=== PATIENT | male | born 1970 | race Caucasian/White ===

== ENCOUNTER 2019-06-13 02:33 | Emergency (ER) | payer OTHER ==
[~2019-06-13] VITALS: Ht 193 cm; Wt 117.9 kg
[~2019-06-13 02:33] MED LIST: LANTUS SUBQ; LIORESAL 10 MG10 MG PO; METFORMIN HCL500 MG PO; PERCOCET PO; TYLENOL325 MG PO; VICTOZA0.6 MG/0.1 SUBQ
[2019-06-13] MEDS ORDERED: TOUJEO MAX300 UNIT/1 (02:35)
[2019-06-13] MEDS ORDERED: JARDIANCE (02:36)
[2019-06-13 02:56] LABS: HEMATOCRIT 47.6 % (42.0-52.0); HEMOGLOBIN 16.7 gm/dL (14.0-18.0); MCH 27.6 pg (26.0-34.0); MCHC 35.1 g/dL (28.0-37.0); MCV 78.6 fL (80.0-100.0); MPV 7.8 fl. (7.2-11.1); NUCLEATED RBCS 0 /100WBC; PLATELET COUNT* 311 thou/uL (150-400); RBC 6.06 mil/uL (4.50-6.00); RDW-CV 13.9 % (10.5-14.5); WBC 14.3 thou/uL (4.0-11.0)
[2019-06-13 03:08] LABS: CALCIUM 9.2 mg/dL (8.5-10.1); CREATININE 0.9 mg/dL (0.6-1.3)
[2019-06-13 03:10] LABS: POTASSIUM 2.8 mmol/L (3.5-5.1)
[2019-06-13 03:46] LABS: ABSOLUTE BASOPHILS 0.6 thou/uL (0.0-0.2); ABSOLUTE EOSINOPHILS 0.7 thou/uL (0.0-0.7); ABSOLUTE LYMPHOCYTES 7.4 thou/uL (0.8-5.3); ABSOLUTE MONOCYTES 0.7 thou/uL (0.0-1.2); ABSOLUTE NEUTROPHILS 4.9 thou/uL (1.6-8.1); ATYPICAL LYMPHS 2 %; PLATELET ESTIMATE ADEQUATE
[2019-06-13 03:47] LABS: ANISOCYTOSIS Occasional
[2019-06-13 04:12] LABS: ALBUMIN 4.1 g/dL (3.4-5.0); TOTAL BILIRUBIN 0.2 mg/dL (<0.1-1.0); TOTAL PROTEIN 7.4 g/dL (6.4-8.2)
[2019-06-13 06:30] VITALS: BP 139/82
== END 2019-06-13 06:30 | disposition home or self-care (01) ==
LOC: M.ERS 02:33
PROVIDERS: Emergency Medicine
DX: T38.3X1A Poisoning by insulin and oral hypoglycemic [antidiabetic] drugs, accidental (unintentional), initial encounter (principal); E11.649 Type 2 diabetes mellitus with hypoglycemia without coma; F90.9 Attention-deficit hyperactivity disorder, unspecified type; Z88.6 Allergy status to analgesic agent; Y92.89 Other specified places as the place of occurrence of the external cause

== ENCOUNTER 2019-11-08 10:55 | Emergency (ER) | payer OTHER ==
[~2019-11-08] VITALS: Ht 193 cm; Wt 122.5 kg
[~2019-11-08 10:55] MED LIST changes: +JARDIANCE; +TOUJEO MAX300 UNIT/1
[2019-11-08 11:51] LABS: ABSOLUTE LYMPHOCYTES 0.6 thou/uL (0.8-5.3); ABSOLUTE MONOCYTES 0.9 thou/uL (0.0-1.2); ABSOLUTE NEUTROPHILS 6.6 thou/uL (1.6-8.1); BASOPHILS 0.5 %; EOSINOPHILS 0.3 %; HEMATOCRIT 50.8 % (42.0-52.0); HEMOGLOBIN 17.6 gm/dL (14.0-18.0); LYMPHOCYTES 7.6 %; MCH 27.9 pg (26.0-34.0); MCHC 34.6 g/dL (28.0-37.0); MCV 80.7 fL (80.0-100.0); MONOCYTES 10.5 %; MPV 7.7 fl. (7.2-11.1); NUCLEATED RBCS 0 /100WBC; PLATELET COUNT* 177 thou/uL (150-400); POLYS 81.1 %; RBC 6.29 mil/uL (4.50-6.00); RDW-CV 14.3 % (10.5-14.5); WBC 8.2 thou/uL (4.0-11.0)
[2019-11-08 12:01] LABS: CALCIUM 8.2 mg/dL (8.5-10.1); CREATININE 1.1 mg/dL (0.6-1.3); POTASSIUM 4.2 mmol/L (3.5-5.1)
[2019-11-08 12:12] LABS: ALBUMIN 3.5 g/dL (3.4-5.0); TOTAL BILIRUBIN 1.5 mg/dL (<0.1-1.0); TOTAL PROTEIN 7.6 g/dL (6.4-8.2)
[2019-11-08 12:57] LABS: URINE BLOOD NEGATIVE (Negative); URINE CLARITY CLEAR; URINE COLOR YELLOW; URINE GLUCOSE-RANDOM 2+ (Negative); URINE LEUKOCYTES-REFLEX NEGATIVE (Negative); URINE NITRITE-REFLEX NEGATIVE (Negative); URINE PROTEIN 2+ (Negative); URINE SPECIFIC GRAVITY >= 1.030 (1.005-1.030); URINE UROBILINOGEN 0.2 E.U./dl (0.2-1.0)
[2019-11-08 12:59] LABS: URINE BILIRUBIN 1+ (Negative); URINE KETONES 3+ (Negative)
[2019-11-08 13:01] LABS: ICTOTEST (BILI CONFIRMATORY) Negative (Negative)
[2019-11-08 13:04] LABS: BACTERIA-REFLEX None Seen /HPF (None Seen); HYALINE CASTS 0-3 Few /LPF (None Seen); MUCUS 0-3 Light strn/LPF (None Seen); SQUAMOUS NONE SEEN /LPF (0-3); URINE RBC None Seen /HPF (0-2); URINE WBC-REFLEX None Seen /HPF (0-5)
[2019-11-08 13:05] LABS: CRYSTALS None Seen /LPF (None Seen)
[2019-11-08 13:50] VITALS: BP 135/80
--- NOTE | 2019-11-09 12:52 | EKG ---
[place] [address] ELECTROCARDIOGRAM REPORT Name: BLAKE MANZANO Room: [facility]#: [id number] Admission: 11/08/19 Attend Phys: Discharge: 11/08/19 Date of : 68 Date of Service: 11/08/19 1208 Report #: [id number] THIS REPORT FOR: //name// [facility] ED Test Date: 2019-11-08 Test Time: 12:08:55 Pat Name: BLAKE MANZANO Department: Room: Gender: Flight Surgeon: DEONNA : 1970 Requested By: Viri Pina Order Number: [id number] MD: Daniel Lea Measurements Intervals [place] Rate: 100 P: 59 [place]: 175 QRS: 59 QRSD: 109 T: 5 QT: 343 QTc: 443 Interpretive Statements Sinus tachycardia Left atrial enlargement Compared to ECG 06/28/2006 08:10:09 Atrial abnormality now present Sinus rhythm no longer present Electronically Signed On 11-09-2019 12:51:05 SATIN FINISHER by Daniel Lea [email or web address] <ELECTRONICALLY SIGNED> By: Daniel Lea MD, FAC 11/09/19 1251 1208 1208 Daniel Lea MD, [facility] /EPI
== END 2019-11-08 13:52 | disposition home or self-care (01) ==
LOC: M.ERS 10:55
PROVIDERS: Physician Assistant
DX: R53.1 Weakness (principal); R50.9 Fever, unspecified; T50.995A Adverse effect of other drugs, medicaments and biological substances, initial encounter; R19.7 Diarrhea, unspecified; E11.9 Type 2 diabetes mellitus without complications; F90.9 Attention-deficit hyperactivity disorder, unspecified type; Z79.4 Long term (current) use of insulin; Z88.6 Allergy status to analgesic agent; Y92.89 Other specified places as the place of occurrence of the external cause